=== PATIENT | male | born 1945 | race Caucasian/White ===

== ENCOUNTER 2019-12-01 11:39 | Outpatient (CLI) | payer MEDICARE, SELFPAY ==
--- NOTE | ~2019-12-01 | XR_ITS ---
EXAMINATION: XR chest 2V DATE: 12/01/2019 12:04 INDICATION: Pneumonia TECHNIQUE: PA and lateral views of the chest were obtained. COMPARISON: None FINDINGS: Scattered opacities in the bilateral mid and lower lung zones most prominent along the lateral right midlung. No pleural effusion or pneumothorax. Cardiomegaly. Mediastinal silhouette is normal. IMPRESSION: 1. Opacities in the bilateral mid and lower lung zones which could represent pneumonia, atelectasis, pulmonary edema or some combination thereof. 2. Cardiomegaly. Reviewed, dictated and finalized at location B. IMPRESSION: 1. Opacities in the bilateral mid and lower lung zones which could represent pn eumonia, atelectasis, pulmonary edema or some combination thereof. 2. Cardiomegaly.
== END 2019-12-01 11:40 | disposition home or self-care (01) ==
PROVIDERS: PCP Family Medicine; Visit Provider Physician Assistant
DX: J18.9 Pneumonia, unspecified organism (principal); R91.8 Other nonspecific abnormal finding of lung field
CPT/HCPCS: 71046

== ENCOUNTER 2021-04-28 00:14 | Day surgery (SDC) | payer MEDICARE, SELFPAY ==
[2021-04-17 14:48] VITALS: BMI 31.8
[2021-04-28 12:21] VITALS: BP 179/80; PULSE 75; RESP 18; TEMP 36.1; O2SAT 97; BMI 31.9
[2021-04-28] MEDS: LACTATED RINGERS 1,000 ML 150 ML IV CONT (12:27)
--- NOTE | 2021-04-28 12:28 | WPDANESEPPF ---
Anes - Initial Pre Proc Eval Procedure: Operation Date: 04/28/21 13:30 Proposed Procedures p Screening Colonoscopy - Sebastian Griffin MD Date/Time: 04/28/21 12:28 Surgeon: Sebastian Griffin MD Pre Op Diagnosis: neoplasm screening Patient Data Age: 75 Gender: M Height: 1.98 m Weight: 125.5 kg Last Vital Signs Temp 36.1 C L 04/28/21 12:21 Pulse 75 04/28/21 12:21 Resp 18 04/28/21 12:21 BP 179/80 H 04/28/21 12:21 Pulse Ox 97 04/28/21 12:21 Allergies Allergy/AdvReac Type Severity Reaction Status Date / Time No Known Allergies Allergy Verified 04/28/21 12:24 Home Medications Medication Instructions Recorded Confirmed Type allopurinol 300 mg PO DAILY 04/17/21 04/28/21 History amlodipine 10 mg PO DAILY 04/17/21 04/28/21 History atenolol 100 mg PO DAILY 04/17/21 04/28/21 History enalapril maleate 20 mg PO DAILY 04/17/21 04/28/21 History fenofibrate 160 mg PO DAILY 04/17/21 04/28/21 History hydrochlorothiazide 25 mg PO DAILY 04/17/21 04/28/21 History tadalafil 5 mg PO DAILY PRN 04/17/21 04/28/21 History Patient hx anesthesia problems: none Family hx anesthesia problems: none Results Review: All pre-operative results and documents have been reviewed as part of the pre-operative evaluation. [facility] Past Medical History Medical History (Updated 04/28/21 @ 12:29 by Adam Chauhan MD) Cataract Gout HTN (hypertension) Hyperlipidemia Obesity Surgical History Surgical History (Updated 04/28/21 @ 12:28 by Adam Chauhan MD) History of appendectomy Social History Social History Smoking packs per day: 2 Smoking cigarettes per day: 40.0 Years smoked: 30 Smoking pack-years: 60.00 Smoking status: Former smoker Tobacco type: cigarettes Alcohol intake: current Drinks per week: 1 Substance use: never Substance use type: does not use Living arrangements: alone Spiritual care concerns: No Anes - Eval Final PreProcedure Day of Procedure 04/28/21 12:28 Patient weight: obese Heart: regular rate and rhythm Lungs: clear to auscultation Airway: Mallampati scale class II Neurological: alert and oriented Last oral intake: >/= 8 hours ASA classification: III Emergent: no Anesthetic plan: proceed Anesthesia type and monitoring: general GIVS and standard monitoring Results Review: All pre-operative results and documents have been reviewed as part of the pre-operative evaluation. Informed Consent: The patient's anesthetic plan and its attendant risks and benefits were discussed with the patient/family/POA. Questions were solicited and answers provided to the satisfaction of the patient/family/POA.
--- NOTE | 2021-04-28 12:46 | WPDGICN ---
Assessment and Plan Assessment and plan (1) History of colon polyps: Code(s): Z86.010 - Personal history of colonic polyps Status: Acute Assessment and Plan: Patient has a history that he was found to have colon polyps 5 years ago. He presents today for surveillance colonoscopy. (2) Family history of colonic polyps: Code(s): Z83.71 - Family history of colonic polyps Status: Acute Assessment and Plan: Patient reports that his brother has had colon polyps as well. GI Consult Note Consult date/time: 04/28/21 12:46 HPI: Jeff Sheldon is a 75 year old male Presents for screening colonoscopy. Patient reports that 5 years ago he had a colonoscopy in colon polyps were identified. Reports his brother also has had colon polyps. Patient reports that his current weight appetite and bowel movements are normal. He denies abdominal pain. He has had no bleeding. Review of Systems Review of Systems: All systems reviewed & are unremarkable except as noted in HPI and below PMFSH Past Medical History Medical History (Updated 04/28/21 @ 12:47 by Sebastian Griffin MD) Cataract Gout HTN (hypertension) Hyperlipidemia Obesity Surgical History Surgical History (Updated 04/28/21 @ 12:28 by Adam Chauhan MD) History of appendectomy Social History Social History Smoking packs per day: 2 Smoking cigarettes per day: 40.0 Years smoked: 30 Smoking pack-years: 60.00 Smoking status: Former smoker Tobacco type: cigarettes Alcohol intake: current Drinks per week: 1 Substance use: never Substance use type: does not use Living arrangements: alone Spiritual care concerns: No Meds Home Medications and Allergies Home Medications Medication Instructions Recorded Confirmed Type allopurinol 300 mg PO DAILY 04/17/21 04/28/21 History amlodipine 10 mg PO DAILY 04/17/21 04/28/21 History atenolol 100 mg PO DAILY 04/17/21 04/28/21 History enalapril maleate 20 mg PO DAILY 04/17/21 04/28/21 History fenofibrate 160 mg PO DAILY 04/17/21 04/28/21 History hydrochlorothiazide 25 mg PO DAILY 04/17/21 04/28/21 History tadalafil 5 mg PO DAILY PRN 04/17/21 04/28/21 History Allergies Allergy/AdvReac Type Severity Reaction Status Date / Time No Known Allergies Allergy Verified 04/28/21 12:24 Vital Signs Vital Signs - 24 hr 04/28/21 12:21 Temperature 96.9 F L Pulse Rate 75 Respiratory Rate 18 Blood Pressure 179/80 H Pulse Oximetry 97 Exam Narrative: Physical exam reveals patient to be alert. Vital signs stable. HEENT exam is unremarkable. Patient is anicteric. Lungs are clear to auscultation and percussion. Heart is without murmur or extra sounds. Abdominal exam bowel sounds are present soft nontender with no organomegaly. Digital external rectal exam is normal.
[2021-04-28] MEDS: SIMETHICONE ORAL SUSPENSION 20 MG/0.3 ML 30 ML BOTTLE 0.6 ML IRRIGATION (13:03)
--- NOTE | 2021-04-28 13:12 | SUR.OPER ---
dR. CORDOBA NOTIFIED THAT ONLY ON SIGMOID COLON POLYP WAS RETRIEVED. NO FURTHER ORDERS RECEIVED
[2021-04-28 13:13] VITALS: BP 116/74; PULSE 75; RESP 22; O2SAT 98
[2021-04-28 13:23] VITALS: BP 141/95; PULSE 72; RESP 13; O2SAT 98
[2021-04-28 13:33] VITALS: BP 158/90; PULSE 70; RESP 19; O2SAT 98
== END 2021-04-28 13:37 | disposition home or self-care (01) ==
PROVIDERS: PCP Family Medicine; Visit Provider Internal Medicine Gastroenterology
PROC: 0DJD8ZZ Inspection of Lower Intestinal Tract, Via Natural or Artificial Opening Endoscopic (ICD-10-PCS; CPT 45378; principal; 2021-04-28 13:30)
DX: Z12.11 Encounter for screening for malignant neoplasm of colon (principal); K63.5 Polyp of colon; Z83.71 Family history of colonic polyps; M10.9 Gout, unspecified; I10 Essential (primary) hypertension; E78.5 Hyperlipidemia, unspecified; Z87.891 Personal history of nicotine dependence; E66.9 Obesity, unspecified; Z68.32 Body mass index [BMI] 32.0-32.9, adult
CPT/HCPCS: 45385; 88305; J2001; J2704; J7120